=== PATIENT | male | born 1955 | race Two or more races ===

== ENCOUNTER 2018-07-09 11:23 | Emergency (ER) | payer OTHER ==
[~2018-07-09] VITALS: Ht 175.3 cm; Wt 91.0 kg
[2018-07-09] MEDS ORDERED: KETOROLAC 30MG/ML VIAL IM ONE (13:15)
[2018-07-09 14:29] VITALS: BP 106/78
== END 2018-07-09 14:37 | disposition home or self-care (01) ==
LOC: ER 11:39
DX: S93.402A Sprain of unspecified ligament of left ankle, initial encounter (principal); S50.312A Abrasion of left elbow, initial encounter; S50.311A Abrasion of right elbow, initial encounter; S80.212A Abrasion, left knee, initial encounter; S80.211A Abrasion, right knee, initial encounter; W01.0XXA Fall on same level from slipping, tripping and stumbling without subsequent striking against object, initial encounter; Y93.89 Activity, other specified; Y92.018 Other place in single-family (private) house as the place of occurrence of the external cause
CPT/HCPCS: 73610; 96372; 99283; J1885